=== PATIENT | male | born 1970 | race African-American/Black ===

== ENCOUNTER 2019-08-12 22:48 | Emergency (ER) | payer MEDICAID ==
[~2019-08-12] VITALS: Ht 175.3 cm; Wt 72.6 kg
--- NOTE | 2019-08-12 23:45 | NUR ---
Dr. Daley at bedside for MSE.
[2019-08-13] MEDS ORDERED: IBUPROFEN 600 MG TABLET PO ONE
[2019-08-13] MEDS ORDERED: IBUPROFEN 600 MG TABLET ONE (00:03)
[2019-08-13] MEDS ORDERED: TDAP DIPH,PERTUSS,TET VAC/PF 0.5 ML DISP.SYRIN IM ONE ×2 (00:03)
--- NOTE | 2019-08-13 00:32 | NUR ---
Patient discharged to home in stable conditon. Written and verbal after care instructions given. Patient verbalizes understanding of instructions. Pt ambulated out of ER with steady gait, no acute signs of distress, VSS, all belongings taken.
[2019-08-13 00:33] VITALS: BP 112/83
[2019-08-15] MEDS ORDERED: AMOX-427 PO (11:42)
[2019-08-15] MEDS ORDERED: DOXY100C2 PO (11:42)
== END 2019-08-13 00:33 | disposition home or self-care (01) ==
LOC: ER 22:48
DX: S41.152A Open bite of left upper arm, initial encounter (principal); F17.200 Nicotine dependence, unspecified, uncomplicated; W50.3XXA Accidental bite by another person, initial encounter; Y93.89 Activity, other specified; Y92.89 Other specified places as the place of occurrence of the external cause; Y99.8 Other external cause status
CPT/HCPCS: 90715; A4217; A4663

== ENCOUNTER 2019-08-13 02:40 | Inpatient (IN) | payer MEDICAID ==
[~2019-08-13] VITALS: Ht 175.3 cm; Wt 72.6 kg
--- NOTE | 2019-08-13 03:00 | NUR ---
Dr. Daley at bedside for MSE.
[2019-08-13] MEDS ORDERED: MORPHINE SULFATE 4 MG/1 ML DISP.SYRIN IV ONE ×2 (03:15→05:00)
[2019-08-13] MEDS ORDERED: MORPHINE SULFATE 4 MG/1 ML DISP.SYRIN ONE ×2 (03:15→04:25)
[2019-08-13 03:22] LABS: BASOPHILS % (AUTO) 0.2 % (0.0-2.0); EOSINOPHILS % (AUTO) 0.4 % (0.0-7.0); HEMATOCRIT 46.1 % (36.7-47.1); HEMOGLOBIN 15.4 g/dL (12.5-16.3); LYMPHOCYTES # (AUTO) 1.4 K/uL (20.0-40.0); MEAN CORPUSCULAR HEMOGLOBIN 30.8 uug (23.8-33.4); MEAN CORPUSCULAR HGB CONC 34 g/dL (32.5-36.3); MONOCYTES # (AUTO) 0.7 K/uL (2.0-10.0); NEUTROPHILS # (AUTO) 8.3 K/uL (1.8-8.9); NEUTROPHILS % (AUTO) 79.4 % (38.5-71.5); PLATELET COUNT (AUTO) 204 K/uL (152-348); RED BLOOD CELL COUNT(AUTO) 5.01 MIL/uL (4.06-5.63); WHITE BLOOD COUNT (AUTO) 10.5 K/uL (3.6-10.2)
[2019-08-13 03:40] LABS: BILIRUBIN,DIRECT 0.2 mg/dL (0.0-0.2); BILIRUBIN,TOTAL 0.9 mg/dL (0.2-1.0); CREATININE 1.2 mg/dL (0.6-1.3); POTASSIUM 3.7 mmol/L (3.5-5.1)
[2019-08-13] MEDS ORDERED: IOHEXOL 300MG/ML 100 ML INFUS..BTL ONE (03:52)
[2019-08-13] MEDS ORDERED: IV NORMAL SALINE 250 ML IV ONE (03:52)
[2019-08-13] MEDS ORDERED: SWABABLE VALVE TRANSFER SET EA MC ONE (03:52)
--- NOTE | 2019-08-13 03:55 | NUR ---
Pt out of ER for CT.
--- NOTE | 2019-08-13 04:23 | NUR ---
Pt back to ER from CT.
[2019-08-13] MEDS ORDERED: ONDANSETRON ODT 4 MG TAB.RAPDIS ONE (05:00)
[2019-08-13] MEDS ORDERED: ONDANSETRON ODT 4 MG TAB.RAPDIS SL ONE (05:00)
--- NOTE | 2019-08-13 05:04 | NUR ---
Kang Damico for Surgery Consult [phone]
--- NOTE | 2019-08-13 05:07 | NUR ---
Dr. Daley speaking with Dr. Rosas, ortho
[2019-08-13] MEDS ORDERED: PIPERACILLIN/TAZO 4.5 GM VIAL IV ONE (05:14)
[2019-08-13] MEDS ORDERED: VANCOMYCIN IV 1,500 MG in IV DEXTROSE 5% 250 ML IV ONE (05:15)
--- NOTE | 2019-08-13 05:25 | NUR ---
Sr. Daley on the phone with Dr. Rosas, ortho consult
[2019-08-13] MEDS ORDERED: VANCOMYCIN 1000 MG VIAL ONE ×2 (05:33→06:55)
[2019-08-13] MEDS ORDERED: VANCOMYCIN HCL 500 MG VIAL ONE (05:33)
[2019-08-13] MEDS ORDERED: IV NS 1000 ML 1,000 ML IV ONE (05:45)
--- NOTE | 2019-08-13 05:56 | NUR ---
Xray at bedside.
[2019-08-13] MEDS ORDERED: PIPERACILLIN SODIUM/TAZOBACTAM 4.5 G in IV DEXTROSE 5% 50 ML IV SCH (06:00)
--- NOTE | 2019-08-13 06:18 | NUR ---
Called [facility] to repage Camilo Sainz NP.
--- NOTE | 2019-08-13 06:23 | NUR ---
Paged Dr. Rosas for Ortho Consult [phone]. unable to leave . called [phone] for MD to . awaiting call back
--- NOTE | 2019-08-13 06:34 | NUR ---
Report given to Rozina GUTIÉRREZ OR.
--- NOTE | 2019-08-13 06:54 | NUR ---
Report given to Mathew clifton.
[2019-08-13] MEDS ORDERED: PROPOFOL 200 MG/20 ML BOTTLE IV ONE (07:00)
[2019-08-13] MEDS ORDERED: LIDOCAINE HCL-MPF 1% 5 ML VIAL IJ ONE (07:00)
[2019-08-13] MEDS ORDERED: ONDANSETRON 4 MG/2 ML VIAL IV ONE (07:00)
[2019-08-13] MEDS ORDERED: SEVOFLURANE 250 ML BOTTLE IH ONE (07:00)
[2019-08-13] MEDS ORDERED: METOCLOPRAMIDE HCL 10 MG/2 ML VIAL IV ONE (07:00)
--- NOTE | 2019-08-13 07:14 | NUR ---
Dr. Porras on panel call with Dr. Lopez.
[2019-08-13] MEDS ORDERED: POLYMYXIN B SULFATE 500,000 UNITS, BACITRACIN 50,000 UNITS, NORMAL SALINE 20 ML MC ONE ×3 (07:15)
[2019-08-13] MEDS ORDERED: FENTANYL CITRATE 250 MCG/5 ML AMPUL ONE (07:21)
[2019-08-13] MEDS ORDERED: MIDAZOLAM HCL 2 MG/2 ML VIAL ONE (07:21)
[2019-08-13] MEDS ORDERED: ROCURONIUM BROMIDE 50 MG/5 ML VIAL ONE (07:22)
--- NOTE | 2019-08-13 07:44 | NUR ---
PT WAS TRANSFERED TO SURGERY DEPARTMENT.
--- NOTE | 2019-08-13 09:54 | NUR ---
Received report from BROCK Thacker. Patient resting in bed. Reports mild pain, tolerable. Alert and oriented, no distress noted. On oxygen via NC 2L. Dressing in place right upper arm, sensation circulation and pulses intact. Swelling to upper arm. Will continue to monitor and assess.
[2019-08-13 10:00] VITALS: BP 105/58
[2019-08-13 10:15] VITALS: BP 104/61
[2019-08-13 10:45] VITALS: BP 99/60
[2019-08-13 11:15] VITALS: BP 91/56
[2019-08-13] MEDS ORDERED: MORPHINE SULFATE 4 MG/1 ML DISP.SYRIN IV PRN (11:45)
[2019-08-13] MEDS: IV D5W-0.45% NS +20 KCL 1,000 ML IV PRN (12:19)
[2019-08-13] MEDS: PIPERACILLIN/TAZOBACTAM/D5W 3.375 G in IV DEXTROSE 5% 50 ML IV SCH ×2 (13:14→21:02)
[2019-08-13] MEDS: HYDROCODONE/APAP 10-325 MG TABLET PO PRN ×2 (14:14→23:15)
[2019-08-13 16:00] VITALS: BP 85/44
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
--- NOTE | 2019-08-13 17:14 | NUR ---
Patient alert and oriented, ambulatory. Postop dressing in place right arm. Pain managed with PRN [place]. Zosyn antibiotic ordered. On IV fluids continuous, to HLIV if tolerating PO. On regular diet.
--- NOTE | 2019-08-13 17:43 | NUR ---
5:39pm: [employer] officers have not arrived at the hospital yet. SAMMI called [employer] dispatch back [phone] to check on an estimated time of arrival for the [employer] officers. SAMMI spoke with dispatcher #[id number], who stated that officers were held up by other incidents, but would be arriving to the hospital soon. SAMMI provided dispatcher with an additional contact number for the hospital, , asking dispatcher #[phone] to provide this contact number to the [employer] officers. Dispatcher #[id number] agreed. SAMMI informed BROCK Traore and BROCK Morales of above, and asked them to obtain the officers names, badge/serial numbers, and incident number from the officers.
--- NOTE | 2019-08-13 19:30 | NUR ---
RECEIVED PT AWAKE, ALERT AND ORIENTEDX4. PT SHOWS NO SIGNS OF ACUTE DISTRESS. SAFETY AND COMFORT PROVIDED. WILL CONTINUE TO MONITOR.
[2019-08-13 19:55] VITALS: BP 98/52
--- NOTE | 2019-08-13 21:20 | NUR ---
[employer] OFFICER NAME BYRON RICH OFFICER SERIAL # [id number] INCIDENT # [id number] INTYERVIEWED THE PT.
[2019-08-14] MEDS: IV D5W-0.45% NS +20 KCL 1,000 ML IV PRN ×2 (01:46→16:56)
[2019-08-14] MEDS: HYDROCODONE/APAP 10-325 MG TABLET PO PRN ×2 (03:31→12:39)
[2019-08-14 04:06] VITALS: BP 92/45
[2019-08-14] MEDS: PIPERACILLIN/TAZOBACTAM/D5W 3.375 G in IV DEXTROSE 5% 50 ML IV SCH ×3 (05:09→21:01)
--- NOTE | 2019-08-14 06:18 | NUR ---
PT SLEPT INTERMITTENTLY. PT IN NO ACUTE DISTRESS. IV INTACT. PRESCRIBED MEDICATION GIVEN AND PT TOLERATED IT WELL. PT GIVEN NORCO [id number] FOR 6/10 PAIN SCALE ON HIS RIGHT UPPER ARM. PT TOLERATED IT WELL. SAFETY AND COMFORT PROVIDED. WILL ENDORSE TO INCOMING NURSE FOR CONTINUITY OF CARE.
[2019-08-14] MEDS: NICOTINE 7 MG/24HR PATCH TD SCH (08:06)
--- NOTE | 2019-08-14 10:48 | NUR ---
SW was informed this morning by trimming caser Angelita and RN Haley that [facility] officer Gavi Busby, serial # [id number], from [facility] had come in last night to meet with the patient. Incident # [id number].
[2019-08-14 11:30] VITALS: BP 111/73
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
[2019-08-14 15:20] VITALS: BP 103/55
[2019-08-14] MEDS: VANCOMYCIN IV 1,000 MG in IV DEXTROSE 5% 250 ML IV SCH (16:08)
[2019-08-14] MEDS: BENZOCAINE/MENTH/CETYLPYRD LOZENGE MM PRN (20:10)
[2019-08-14 20:30] VITALS: BP 127/63
[2019-08-15] MEDS: VANCOMYCIN IV 1,000 MG in IV DEXTROSE 5% 250 ML IV SCH (04:50)
[2019-08-15 05:29] VITALS: BP 115/61
[2019-08-15] MEDS: PIPERACILLIN/TAZOBACTAM/D5W 3.375 G in IV DEXTROSE 5% 50 ML IV SCH (05:59)
[2019-08-15] MEDS: IV D5W-0.45% NS +20 KCL 1,000 ML IV PRN (06:05)
--- NOTE | 2019-08-15 06:35 | NUR ---
Patient slept well. No complaints of pain at this time. IV site on LFA intact and patent w/ IVF infusing. All needs attended. Will endorse accordingly
[2019-08-15 06:36] LABS: BASOPHILS % (AUTO) 0.3 % (0.0-2.0); EOSINOPHILS # (AUTO) 0.1 K/uL (0.0-0.7); EOSINOPHILS % (AUTO) 0.8 % (0.0-7.0); HEMATOCRIT 25.6 % (36.7-47.1); HEMOGLOBIN 8.7 g/dL (12.5-16.3); LYMPHOCYTES # (AUTO) 0.9 K/uL (20.0-40.0); LYMPHOCYTES % (AUTO) 12.7 % (20.5-51.5); MEAN CORPUSCULAR HEMOGLOBIN 31.2 uug (23.8-33.4); MEAN CORPUSCULAR HGB CONC 34 g/dL (32.5-36.3); MEAN CORPUSCULAR VOLUME 91.5 fL (73.0-96.2); MONOCYTES # (AUTO) 0.7 K/uL (2.0-10.0); MONOCYTES % (AUTO) 10.2 % (0.0-11.0); NEUTROPHILS # (AUTO) 5.4 K/uL (1.8-8.9); PLATELET COUNT (AUTO) 136 K/uL (152-348); WHITE BLOOD COUNT (AUTO) 7.1 K/uL (3.6-10.2)
[2019-08-15 07:04] LABS: MAGNESIUM 1.7 mg/dL (1.8-2.4); PHOSPHOROUS 2.4 mg/dL (2.5-4.9); POTASSIUM 3.6 mmol/L (3.5-5.1)
[2019-08-15] MEDS: NICOTINE 7 MG/24HR PATCH TD SCH (08:01)
[2019-08-15] MEDS: BENZOCAINE/MENTH/CETYLPYRD LOZENGE MM PRN (10:10)
[2019-08-15] MEDS ORDERED: ONDANSETRON 4 MG/2 ML VIAL IV PRN (10:15)
[2019-08-15 11:10] VITALS: BP 127/54
[2019-08-15] MEDS ORDERED: AMOX-427 PO (11:42)
[2019-08-15] MEDS ORDERED: DOXY100C2 PO (11:42)
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
--- NOTE | 2019-08-15 13:41 | NUR ---
dc orders received noted and carried out,dc instruction given to the pt .home health follow at home pt said he will follow up with his pcp ,pt left the facility via private car in stable condition
== END 2019-08-15 13:20 | disposition home health service (06) | DRG 793 ==
LOC: ER 02:43 → MEDSURG3 07:02
PROVIDERS: ADMIT Nurse Practitioner Acute Care; ATTEND Student in an Organized Health Care Education/Training Program
PROC: 0J9D0ZZ Drainage of Right Upper Arm Subcutaneous Tissue and Fascia, Open Approach (ICD-10-PCS; principal; 2019-08-13)
PROC: 0JCD0ZZ Extirpation of Matter from Right Upper Arm Subcutaneous Tissue and Fascia, Open Approach (ICD-10-PCS; principal; 2019-08-13)
DX: T79.8XXA Other early complications of trauma, initial encounter (principal); D62 Acute posthemorrhagic anemia; E83.39 Other disorders of phosphorus metabolism; E83.42 Hypomagnesemia; E83.51 Hypocalcemia; Q85.00 Neurofibromatosis, unspecified; F17.210 Nicotine dependence, cigarettes, uncomplicated; Z83.3 Family history of diabetes mellitus; S40.871A Other superficial bite of right upper arm, initial encounter; Y04.1XXA Assault by human bite, initial encounter; Y92.89 Other specified places as the place of occurrence of the external cause
CPT/HCPCS: 36415; 73020; 73060; 83605; 83735; 84100; 85025; 85730; 86850; 86900; 86901; A4649; A4663; A9150; G0378; J2250; J2270; J2405; J2543; J2765; J3010; J3370; J3490; J7030; J7050; J7060; Q0162; Q9967

== ENCOUNTER 2019-08-18 14:49 | Inpatient (IN) | payer MEDICAID ==
[~2019-08-18] VITALS: Ht 175.3 cm; Wt 76.2 kg
[~2019-08-18 14:49] MED LIST: AMOX-427 PO; DOXY100C2 PO
[2019-08-18 15:55] LABS: BASOPHILS % (AUTO) 0.5 % (0.0-2.0); EOSINOPHILS % (AUTO) 0.1 % (0.0-7.0); HEMATOCRIT 32.5 % (36.7-47.1); HEMOGLOBIN 10.9 g/dL (12.5-16.3); LYMPHOCYTES # (AUTO) 0.8 K/uL (20.0-40.0); LYMPHOCYTES % (AUTO) 16.5 % (20.5-51.5); MEAN CORPUSCULAR HEMOGLOBIN 30.6 uug (23.8-33.4); MEAN CORPUSCULAR HGB CONC 33 g/dL (32.5-36.3); MEAN CORPUSCULAR VOLUME 91.6 fL (73.0-96.2); MONOCYTES # (AUTO) 0.8 K/uL (2.0-10.0); MONOCYTES % (AUTO) 18.1 % (0.0-11.0); NEUTROPHILS % (AUTO) 64.8 % (38.5-71.5); PLATELET COUNT (AUTO) 264 K/uL (152-348); RED BLOOD CELL COUNT(AUTO) 3.55 MIL/uL (4.06-5.63); WHITE BLOOD COUNT (AUTO) 4.6 K/uL (3.6-10.2)
[2019-08-18] MEDS ORDERED: SWABABLE VALVE TRANSFER SET EA MC ONE (15:58)
[2019-08-18] MEDS ORDERED: IV NORMAL SALINE 250 ML IV ONE (15:58)
[2019-08-18] MEDS ORDERED: IOHEXOL 300MG/ML 100 ML INFUS..BTL ONE (15:58)
[2019-08-18 16:09] LABS: CREATININE 1.3 mg/dL (0.6-1.3); POTASSIUM 4.1 mmol/L (3.5-5.1)
[2019-08-18 16:13] LABS: BILIRUBIN,DIRECT 0.2 mg/dL (0.0-0.2); BILIRUBIN,TOTAL 0.9 mg/dL (0.2-1.0); TOTAL PROTEIN, SERUM 7.6 g/dL (6.4-8.2)
[2019-08-18 16:45] LABS: BAND % (MANUAL) 5 % (0-10); LYMPHOCYTES % (MANUAL) 15 % (20-40); MONOCYTES % (MANUAL) 18 % (2-10); NEUTROPHILS % (MANUAL) 62 % (42-75)
--- NOTE | 2019-08-18 17:40 | NUR ---
Pt states he has to leave to go to work, notified and he spoke with pt.
[2019-08-18] MEDS ORDERED: PIPERACILLIN SODIUM/TAZOBACTAM 3.375 G in IV DEXTROSE 5% 50 ML IV ONE (18:00)
[2019-08-18] MEDS ORDERED: VANCOMYCIN IV 1,500 MG in IV DEXTROSE 5% 500 ML IV SCH (18:00)
[2019-08-18] MEDS ORDERED: IV NORMAL SALINE 1000 ML BAG IV ONE (18:00)
--- NOTE | 2019-08-18 18:00 | NUR ---
Per pt to be admitted, spoke with pt about plan of care.
[2019-08-18] MEDS ORDERED: PIPERACILLIN/TAZOBACTAM/D5W 50 ML IV ONE (18:07)
--- NOTE | 2019-08-18 18:30 | NUR ---
[facility] was contacted by ER admitting for auth for admission.
--- NOTE | 2019-08-18 19:10 | NUR ---
RECEIVED HAND OFF AND SBAR FR DAY SHIFT RN PT IS AOX3, RA W/G20 AC L INFUSING ABX AND NSS INFUSING WELL PENDING CALL BACK FR DR. BURTON (ORTHO)
--- NOTE | 2019-08-18 19:40 | NUR ---
DR BURTON PAGED AGAIN
--- NOTE | 2019-08-18 21:02 | NUR ---
AFTER MULTIPLE ATTEMPTS TO PAGE DR. BURTON, TEOD PROMPTED TO ADMIT TO FACILITY PAGED FIDEL(JOHANN)
--- NOTE | 2019-08-18 21:02 | NUR ---
Called [facility] for panel placement
[2019-08-18] MEDS ORDERED: ONDANSETRON 4 MG/2 ML VIAL IV PRN (21:45)
[2019-08-18] MEDS ORDERED: Z GUARD REMEDY PASTE 57 GM TUBE TOP PRN (21:45)
[2019-08-18] MEDS ORDERED: HYDROCODONE/APAP 5-325MG TABLET PO PRN (21:45)
[2019-08-18] MEDS ORDERED: ACETAMINOPHEN 325 MG TABLET PO PRN (21:45)
[2019-08-18] MEDS ORDERED: MAGNESIUM HYDROXIDE 30 ML LIQUID UDC PO PRN (21:45)
--- NOTE | 2019-08-18 22:19 | NUR ---
[facility]
[2019-08-18 22:20] VITALS: BP 113/62
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
[2019-08-18] MEDS ORDERED: PIPERACILLIN/TAZOBACTAM/D5W 100 ML IV ONE (23:06)
[2019-08-19] MEDS: PIPERACILLIN/TAZOBACTAM/D5W 50 ML IV SCH ×2 (00:16→05:21)
--- NOTE | 2019-08-19 05:50 | NUR ---
PATIENT SLEPT WELL THROUGHOUT THE NIGHT. TOLERATED IV ANTIBIOTICS WITH NO COMPLICATIONS. NO COMPLAINTS OF PAIN. RIGHT ARM HAS SLIGHT INCREASED SWELLING. WILL ENDORSE TO ONCOMING SHIFT.
[2019-08-19 05:52] VITALS: BP 120/72
[2019-08-19 07:40] LABS: BASOPHILS % (AUTO) 0.5 % (0.0-2.0); EOSINOPHILS % (AUTO) 0.4 % (0.0-7.0); HEMATOCRIT 26.8 % (36.7-47.1); HEMOGLOBIN 9.2 g/dL (12.5-16.3); LYMPHOCYTES # (AUTO) 0.8 K/uL (20.0-40.0); LYMPHOCYTES % (AUTO) 19.1 % (20.5-51.5); MEAN CORPUSCULAR HEMOGLOBIN 31.2 uug (23.8-33.4); MEAN CORPUSCULAR HGB CONC 35 g/dL (32.5-36.3); MEAN CORPUSCULAR VOLUME 90.6 fL (73.0-96.2); MONOCYTES # (AUTO) 0.7 K/uL (2.0-10.0); MONOCYTES % (AUTO) 16.9 % (0.0-11.0); NEUTROPHILS # (AUTO) 2.5 K/uL (1.8-8.9); NEUTROPHILS % (AUTO) 63.1 % (38.5-71.5); PLATELET COUNT (AUTO) 237 K/uL (152-348); RED BLOOD CELL COUNT(AUTO) 2.95 MIL/uL (4.06-5.63)
[2019-08-19 08:02] LABS: CREATININE 1.1 mg/dL (0.6-1.3); PHOSPHOROUS 3.8 mg/dL (2.5-4.9); POTASSIUM 3.9 mmol/L (3.5-5.1)
--- NOTE | 2019-08-19 08:07 | NUR ---
RECEIVED PT RESTING IN BED. NO ACUTE DISTRESS OR SOB NOTED. PT DENIES PAIN AT THIS TIME. BED LOCKED AND IN LOW POSITION. PT ALERT AND ORIENTED X4. PLEASANT AND COOPERATIVE. WILL CONTINUE TO MONITOR FOR SAFETY AND COMFORT.
[2019-08-19 09:25] LABS: BAND % (MANUAL) 2 % (0-10); MONOCYTES % (MANUAL) 16 % (2-10); NEUTROPHILS % (MANUAL) 66 % (42-75)
[2019-08-19 09:26] LABS: LYMPHOCYTES % (MANUAL) 16 % (20-40)
--- NOTE | 2019-08-19 09:34 | NUR ---
Clinical pharmacy note:Vancomycin per pharmacy Subjective: To strat Vancomycin dosing on this 49 yo male patient for empiric tx (waiting for MD note) Objective: BUN 12 Scr 1.1 (decreasing) WBC 4.0 Temp 98.6 ht 175 mc wt 76 kg Assessment/Plan: Patient received vanco 1500 mg IVPB x1 on 08/18 at 1830. Will start vanoc 1250 mg IVPB q13h for expected vanco trough level of 17 mcg/ml at stead state. 1st dose today at 0900. Plan to order vanco trough level before 4th dose (not yet ordered). Will monitor renal function & adjust the dose if needed. Will follow.
[2019-08-19] MEDS: VANCOMYCIN IV 1,250 MG in IV DEXTROSE 5% 250 ML IV SCH ×2 (09:39→21:20)
[2019-08-19 11:47] VITALS: BP 102/55
[2019-08-19] MEDS: PIPERACILLIN SODIUM/TAZOBACTAM 3.375 G in IV DEXTROSE 5% 50 ML IV SCH ×3 (11:58→23:45)
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
--- NOTE | 2019-08-19 14:45 | NUR ---
PT HAS $203 DOLLARS IN SAFE. JOSE MIGUEL CONTACTED ADMITTING IN ORDER TO PUT MONEY IN SAFE.
--- NOTE | 2019-08-19 15:32 | NUR ---
TRINA WRAP PLACED ON COREY ORDERED BY . FOLLOWED BY K-PAD. K-PAD NOT FUNCTIONING CORRECTLY. CHARGE NURSE MITZI CONTACTED [employer] IN ORDER TO OBTAIN ANOTHER MACHINE.
[2019-08-19 16:25] VITALS: BP 156/78
[2019-08-19 16:30] VITALS: BP 97/58
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
[2019-08-19 20:27] VITALS: BP 96/56
[2019-08-20] MEDS: PIPERACILLIN SODIUM/TAZOBACTAM 3.375 G in IV DEXTROSE 5% 50 ML IV SCH ×2 (05:09→12:01)
[2019-08-20 06:00] VITALS: BP 105/58
--- NOTE | 2019-08-20 06:17 | NUR ---
Patient slept well. No SOB noted, not in distress. No complaints of pain at this time. IV site changed to L hand 22g, intact and patent with saline flush. IV ATBs tolerated well. R arm covered w/ TRINA bandage, K pad in place. All needs attended. Will endorse accordingly
--- NOTE | 2019-08-20 07:30 | NUR ---
RECEIVED PATIENT IN BED ASLEEP , NO S/S OF ACUTE DISTRESS NOTED, NO C/O PAIN AT THIS TIME, IV INTACT AND PATENT , SAFETY AND COMFORT PROVIDED AT ALL TIMES. CALL LIGHT WITHIN REACH. WILL CONTINUE TO MONITOR.
[2019-08-20] MEDS: VANCOMYCIN IV 1,250 MG in IV DEXTROSE 5% 250 ML IV SCH (10:01)
[2019-08-20 11:16] VITALS: BP 91/52
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
[2019-08-20 15:26] VITALS: BP 99/55
--- NOTE | 2019-08-20 17:40 | NUR ---
RECEIVED DISCHARGE ORDER FOR PATIENT TO TRANSFER TO [facility] VIA AMBULANCE WITH 2 EMT, DISCHARGE INSTRUCTION GIVEN AND VERBALIZED UNDERSTANDING, BELONGINGS ACCOUNTED FOR AND SIGNED, IV KEPT FOR CONTINUATION OF USE AT THE FACILITY. QUESTIONS AND CONCERNS ADDRESSED. PATIENT REMOVED TRINA BANDAGE STATES HE DOESN'T NEED IT ANYMORE.
== END 2019-08-20 17:30 | disposition short-term general hospital (02) | DRG 344 ==
LOC: ER 14:49 → MEDSURG3 21:53
PROVIDERS: ADMIT Family Medicine; ATTEND Family Medicine
DX: M60.000 Infective myositis, unspecified right arm (principal); D62 Acute posthemorrhagic anemia; Q85.00 Neurofibromatosis, unspecified; S41.15 Open bite of upper arm; R79.89 Other specified abnormal findings of blood chemistry; W50 Accidental hit, strike, kick, twist, bite or scratch by another person
CPT/HCPCS: 36415; 70030-TC; 71046; 76881; 83605; 83735; 84100; 85025; 87040; 87400; 93005; A4217; A4663; G0378; J2543; J3370; J7030; J7040; J7050; J7060; Q9967

== ENCOUNTER 2019-08-23 00:21 | Emergency (ER) | payer MEDICAID ==
[~2019-08-23] VITALS: Ht 172.7 cm; Wt 72.6 kg
[2019-08-23] MEDS ORDERED: AMOX500T2 PO (00:49)
[2019-08-23] MEDS ORDERED: IBUP-1955 PO (00:49)
--- NOTE | 2019-08-23 00:56 | NUR ---
JAMEEL AT BEDSIDE FOR MSE.
[2019-08-23] MEDS ORDERED: VANCOMYCIN IV 1,000 MG in IV DEXTROSE 5% 250 ML IV ONE (01:15)
[2019-08-23] MEDS ORDERED: VANCOMYCIN IV 200 ML ONE (01:24)
--- NOTE | 2019-08-23 01:32 | NUR ---
started heplock placed no 20 H/L to the right hand .
--- NOTE | 2019-08-23 01:52 | NUR ---
asked for food given dinner tray .patient able to feed self.
--- NOTE | 2019-08-23 02:18 | NUR ---
Received call from [facility], states no available beds in [facility], and pt is capitated to [facility], if patient refuses to go to [facility], patient may or may not be responsible for the medical bill. .
--- NOTE | 2019-08-23 02:27 | NUR ---
[facility] [employer] called and spoked with Babak .as per insurance patient signed AMA from [facility] .
--- NOTE | 2019-08-23 02:45 | NUR ---
DR:LIYAH spoked to patient ,patient refused to go to [facility] .PATIENT REFUSED TO SIGNED AMA FORM AND ELOPE WITH IV HEPLOCK ON .ATTEMPTED TO REMOVED PATIENT LEFT .
--- NOTE | 2019-08-23 03:24 | NUR ---
Patient eloped from facility. ER physician notified.REFUSED TO SIGN REJECTION OF MEDICAL TREATMENT ,AGAINST MEDICAL ADVICE,AMA FORM .
== END 2019-08-23 03:15 | disposition left against medical advice (07) ==
LOC: ER 00:23
DX: Z48.02 Encounter for removal of sutures (principal); R60.9 Edema, unspecified; F17.200 Nicotine dependence, unspecified, uncomplicated; F10.10 Alcohol abuse, uncomplicated; Z79.899 Other long term (current) drug therapy
CPT/HCPCS: 96374; 99283; J3370; A4663

== ENCOUNTER 2019-09-12 00:36 | Emergency (ER) | payer MEDICAID ==
[~2019-09-12] VITALS: Ht 175.3 cm; Wt 72.6 kg
--- NOTE | 2019-09-12 01:00 | NUR ---
Dr. Proctor at bedside for MSE.
[2019-09-12 01:40] VITALS: BP 115/71
== END 2019-09-12 01:40 | disposition home or self-care (01) ==
LOC: ER 00:39
DX: S41.111D Laceration without foreign body of right upper arm, subsequent encounter (principal); F17.219 Nicotine dependence, cigarettes, with unspecified nicotine-induced disorders; F10.10 Alcohol abuse, uncomplicated; Z79.899 Other long term (current) drug therapy; Z71.6 Tobacco abuse counseling
CPT/HCPCS: A4217; A4663

== ENCOUNTER 2019-11-15 03:01 | Emergency (ER) | payer MEDICAID ==
[~2019-11-15] VITALS: Ht 175.3 cm; Wt 72.6 kg
--- NOTE | 2019-11-15 03:21 | NUR ---
Dr. Vega at bedside for MSE.
[2019-11-15] MEDS ORDERED: BACITRACIN ZINC OINT 15 GM TUBE TOP STA (03:29)
[2019-11-15] MEDS ORDERED: SULFAMETH/TRIMETH 800/160 MG TABLET PO ONE (03:30)
[2019-11-15] MEDS ORDERED: CEphaleXIN 500 MG CAPSULE PO ONE (03:30)
[2019-11-15] MEDS ORDERED: NEOMY/BACITRA/POLYMYXIN B OINT UD PACKET TP ONE (03:32)
[2019-11-15] MEDS ORDERED: SULFAMETH/TRIMETH 800/160 MG TABLET ONE (03:37)
[2019-11-15] MEDS ORDERED: CEphaleXIN 500 MG CAPSULE ONE (03:38)
[2019-11-15] MEDS ORDERED: SILVER SULFADIAZINE 1% CREAM 25 GM TUBE TP ONE (03:41)
[2019-11-15] MEDS ORDERED: SILVER SULFADIAZINE 1% CREAM 50 GM TP ONE (03:45)
--- NOTE | 2019-11-15 03:47 | NUR ---
Patient discharged to home in stable condition. Written and verbal after care instructions given. Patient verbalizes understanding of instructions. Stressed follow up or return to ER for worsening s/s. Pt ambulated out of ER with steady gait, no acute signs of distress, VSS, all belongings taken.
[2019-11-15 03:48] VITALS: BP 120/90
== END 2019-11-15 03:48 | disposition home or self-care (01) ==
LOC: ER 03:06
PROC: 2W2FX4Z Dressing of Left Hand using Bandage (ICD-10-PCS; principal; 2019-11-15)
DX: T23.362A Burn of third degree of back of left hand, initial encounter (principal); X19.XXXA Contact with other heat and hot substances, initial encounter; Y08.89XA Assault by other specified means, initial encounter; Y93.89 Activity, other specified; Y92.89 Other specified places as the place of occurrence of the external cause; Y99.8 Other external cause status; L03.114 Cellulitis of left upper limb
CPT/HCPCS: 16020; A4217

== ENCOUNTER 2022-03-21 02:53 | Emergency (ER) | payer MEDICAID ==
[~2022-03-21] VITALS: Ht 177.8 cm; Wt 78.5 kg
--- NOTE | 2022-03-21 04:11 | NUR ---
Dr. Foster at bedside for MSE.
[2022-03-21] MEDS ORDERED: OXYC-128 PO (04:25)
--- NOTE | 2022-03-21 04:30 | NUR ---
Patient discharged to home in stable condition. Written and verbal after care instructions given. Patient verbalizes understanding of instructions. Stressed follow up or return to ER for worsening s/s.
[2022-03-21 04:31] VITALS: BP 135/82
== END 2022-03-21 04:31 | disposition home or self-care (01) ==
LOC: ER 02:56
DX: S46.912A Strain of unspecified muscle, fascia and tendon at shoulder and upper arm level, left arm, initial encounter (principal); X50.3XXA Overexertion from repetitive movements, initial encounter; Y92.89 Other specified places as the place of occurrence of the external cause; Y99.0 Civilian activity done for income or pay; Q85.00 Neurofibromatosis, unspecified
CPT/HCPCS: A4663

== ENCOUNTER 2022-10-07 01:37 | Emergency (ER) | payer MEDICAID ==
[~2022-10-07] VITALS: Ht 177.8 cm; Wt 74.8 kg
[~2022-10-07 01:37] MED LIST changes: -AMOX-427 PO; -DOXY100C2 PO; +OXYC-128 PO
--- NOTE | 2022-10-07 01:50 | NUR ---
Dr. Foster at bedside. MSE in progress.
[2022-10-07] MEDS ORDERED: CEphaleXIN 500 MG CAPSULE PO ONE (02:00)
[2022-10-07] MEDS ORDERED: SULFAMETH/TRIMETH 800/160 MG TABLET PO ONE (02:00)
[2022-10-07] MEDS ORDERED: SULF1TAB48 PO (02:05)
[2022-10-07] MEDS ORDERED: HYDR-3972 PO (02:05)
[2022-10-07] MEDS ORDERED: CEPH500C2 PO (02:05)
[2022-10-07] MEDS ORDERED: SULFAMETH/TRIMETH 800/160 MG TABLET ONE (02:06)
[2022-10-07] MEDS ORDERED: CEphaleXIN 500 MG CAPSULE ONE (02:06)
--- NOTE | 2022-10-07 02:10 | NUR ---
Patient discharged to home in stable condition. A/O x 4. NAD noted. Ambulatory with a steady gait. All belongings with patient. Written and verbal after care instructions given. Patient verbalizes understanding of instructions. Stressed follow up or return to ER for worsening s/s.
== END 2022-10-07 02:11 | disposition home or self-care (01) ==
LOC: ER 01:37
DX: J34.0 Abscess, furuncle and carbuncle of nose (principal)
CPT/HCPCS: A4663

== ENCOUNTER 2024-05-12 22:43 | Emergency (ER) | payer SELFPAY ==
[~2024-05-12] VITALS: Ht 175.3 cm; Wt 77.1 kg
[~2024-05-12 22:43] MED LIST changes: +CEPH500C2 PO; +CEPH500T PO; +HYDR-3972 PO; +HYDR-3980 PO; +NITR-84 PO; +ONDA4TAB5 PO; +SULF1TAB48 PO
[2024-05-13 01:20] LABS: BASOPHILS # (AUTO) 0.2 K/UL (0.0-0.2); BASOPHILS % (AUTO) 2.3 % (0.0-2.0); EOSINOPHILS % (AUTO) 0.3 % (0.0-7.0); HEMATOCRIT 44.4 % (36.7-47.1); HEMOGLOBIN 14.9 g/dL (12.5-16.3); LYMPHOCYTES # (AUTO) 0.9 K/uL (0.8-4.8); LYMPHOCYTES % (AUTO) 10.2 % (20.5-51.5); MEAN CORPUSCULAR HEMOGLOBIN 30.4 uug (23.8-33.4); MEAN CORPUSCULAR HGB CONC 34 g/dL (32.5-36.3); MEAN CORPUSCULAR VOLUME 90.4 fL (73.0-96.2); MONOCYTES # (AUTO) 0.7 K/uL (0.1-1.30); MONOCYTES % (AUTO) 7.7 % (0.0-11.0); NEUTROPHILS # (AUTO) 7.2 K/uL (1.8-8.9); NEUTROPHILS % (AUTO) 79.5 % (38.5-71.5); PLATELET COUNT (AUTO) 175 K/uL (152-348); RED CELL DISTRIBUTION WIDTH 13.4 % (12.1-16.2)
[2024-05-13] MEDS ORDERED: SULFAMETH/TRIMETH 800/160 MG TABLET ONE (01:27)
[2024-05-13] MEDS: SULFAMETH/TRIMETH 800/160 MG TABLET PO ONE (01:28)
[2024-05-13 02:29] LABS: ALANINE AMINOTRANSFERASE 19 U/L (16-63); ALBUMIN 3.8 g/dL (3.4-5.0); ALKALINE PHOSPHATASE 54 U/L (50-136); ASPARTATE AMINOTRANSFERASE 8 U/L (15-37); BILIRUBIN,DIRECT < 0.1 mg/dL (0.0-0.2); BILIRUBIN,TOTAL 0.3 mg/dL (0.2-1.0); CALCIUM 9.1 mg/dL (8.5-10.1); CARBON DIOXIDE 27 mmol/L (21-32); CHLORIDE 106 mmol/L (98-107); CREATININE 1.2 mg/dL (0.6-1.3); GLUCOSE 97 mg/dL (74-106); POTASSIUM 4.2 mmol/L (3.5-5.1); SODIUM SERUM 144 mmol/L (136-145); TOTAL PROTEIN, SERUM 7.5 g/dL (6.4-8.2); UREA NITROGEN, BLOOD 15 mg/dL (7-18)
[2024-05-13] MEDS ORDERED: SWABABLE VALVE TRANSFER SET EA MC ONE (02:42)
[2024-05-13] MEDS ORDERED: IOHEXOL 300MG/ML 100 ML INFUS..BTL ONE (02:42)
[2024-05-13] MEDS ORDERED: IV NORMAL SALINE 250 ML IV ONE (02:44)
[2024-05-13 03:14] LABS: *BILIRUBIN,URIN NEGATIVE (NEGATIVE); *BLOOD, URINE NEGATIVE (NEGATIVE); *CLARITY,URINE CLEAR (CLEAR); *COLOR,URINE YELLOW (YELLOW); *KETONES,URINE NEGATIVE (NEGATIVE); *PROTEIN,URINE NEGATIVE (NEGATIVE); *UROBILINOGEN,URINE 0.2 E.U./dl (NORMAL); LEUKOCYTE ESTERASE ,URINE NEGATIVE (NEGATIVE); NITRITE, URINE NEGATIVE (NEGATIVE); PH,URINE 6.5 (5.0-8.0); UGLUCOSE NEGATIVE (NEGATIVE)
[2024-05-13 04:19] LABS: LIPASE 20 U/L (16-77)
[2024-05-13] MEDS: HYDROMORPHONE 1 MG/1 ML DISP.SYRIN IV ONE (04:30)
[2024-05-13] MEDS ORDERED: HYDROMORPHONE 1 MG/1 ML DISP.SYRIN ONE (04:54)
[2024-05-13 05:10] VITALS: O2SAT 96
[2024-05-13] MEDS ORDERED: SULF1TAB48 PO (06:09)
== END 2024-05-13 07:39 | disposition home or self-care (01) ==
LOC: ER 22:44
DX: K40.30 Unilateral inguinal hernia, with obstruction, without gangrene, not specified as recurrent (principal); L03.116 Cellulitis of left lower limb; F17.210 Nicotine dependence, cigarettes, uncomplicated; Z79.899 Other long term (current) drug therapy; Z88.7 Allergy status to serum and vaccine
CPT/HCPCS: 36415; 83690; 85025; 85730; A4606; A4663; J1171; Q9967

== ENCOUNTER 2024-05-24 01:10 | Emergency (ER) | payer SELFPAY ==
[~2024-05-24] VITALS: Ht 175.3 cm; Wt 79.4 kg
[2024-05-24] MEDS ORDERED: FURO-152 PO (01:25)
[2024-05-24] MEDS ORDERED: FUROSEMIDE 20 MG TABLET ONE (01:27)
[2024-05-24] MEDS: FUROSEMIDE 20 MG TABLET PO ONE (01:29)
[2024-05-24] MEDS ORDERED: TDAP DIPH,PERTUSS,TET VAC/PF 0.5 ML DISP.SYRIN IM ONE (01:32)
[2024-05-24] MEDS ORDERED: AMOXICILLIN-CLAVUL 875-125MG TABLET ONE (01:32)
[2024-05-24] MEDS: AMOXICILLIN-CLAVUL 875-125MG TABLET PO ONE (01:37)
[2024-05-24] MEDS: TDAP DIPH,PERTUSS,TET VAC/PF 0.5 ML DISP.SYRIN IM ONE (01:38)
[2024-05-24 01:44] LABS: BASOPHILS % (AUTO) 0.5 % (0.0-2.0); EOSINOPHILS # (AUTO) 0.1 K/uL (0.0-0.7); EOSINOPHILS % (AUTO) 0.8 % (0.0-7.0); HEMATOCRIT 47.6 % (36.7-47.1); HEMOGLOBIN 15.7 g/dL (12.5-16.3); LYMPHOCYTES # (AUTO) 1.5 K/uL (0.8-4.8); LYMPHOCYTES % (AUTO) 20.6 % (20.5-51.5); MEAN CORPUSCULAR HEMOGLOBIN 30.2 uug (23.8-33.4); MEAN CORPUSCULAR HGB CONC 33 g/dL (32.5-36.3); MEAN CORPUSCULAR VOLUME 91.2 fL (73.0-96.2); MONOCYTES # (AUTO) 0.7 K/uL (0.1-1.30); MONOCYTES % (AUTO) 9.6 % (0.0-11.0); NEUTROPHILS % (AUTO) 68.5 % (38.5-71.5); PLATELET COUNT (AUTO) 203 K/uL (152-348); RED BLOOD CELL COUNT(AUTO) 5.22 MIL/uL (4.06-5.63); RED CELL DISTRIBUTION WIDTH 13.7 % (12.1-16.2); WHITE BLOOD COUNT (AUTO) 7.3 K/uL (3.6-10.2)
[2024-05-24 01:49] LABS: DIFFERENTIAL COMMENT 1
[2024-05-24 01:51] LABS: CALCIUM 9.6 mg/dL (8.5-10.1); CARBON DIOXIDE 28 mmol/L (21-32); CHLORIDE 107 mmol/L (98-107); CREATININE 1.1 mg/dL (0.6-1.3); GLUCOSE 99 mg/dL (74-106); POTASSIUM 4.6 mmol/L (3.5-5.1); SODIUM SERUM 142 mmol/L (136-145); UREA NITROGEN, BLOOD 18 mg/dL (7-18)
[2024-05-24 02:37] LABS: MAGNESIUM 2.2 mg/dL (1.8-2.4)
[2024-05-24 03:10] VITALS: BP 122/89; TEMP 98.6; O2SAT 99
== END 2024-05-24 03:10 | disposition home or self-care (01) ==
LOC: ER 01:11
DX: R60.0 Localized edema (principal); F17.200 Nicotine dependence, unspecified, uncomplicated; Z79.899 Other long term (current) drug therapy; Z60.2 Problems related to living alone; Z88.7 Allergy status to serum and vaccine; W45.0XXA Nail entering through skin, initial encounter
CPT/HCPCS: 36415; 71045; 83735; 84484; 85025; 90715; A4606; A4663

== ENCOUNTER 2024-08-31 20:46 | Inpatient (IN) | payer SELFPAY ==
[~2024-08-31] VITALS: Ht 175.3 cm; Wt 77.1 kg
[~2024-08-31 20:46] MED LIST changes: +FURO-152 PO
[2024-08-31 21:26] LABS: BASOPHILS % (AUTO) 0.3 % (0.0-2.0); EOSINOPHILS % (AUTO) 0.4 % (0.0-7.0); HEMATOCRIT 44.9 % (36.7-47.1); HEMOGLOBIN 15.2 g/dL (12.5-16.3); LYMPHOCYTES # (AUTO) 1.2 K/uL (0.8-4.8); LYMPHOCYTES % (AUTO) 11.1 % (20.5-51.5); MEAN CORPUSCULAR HEMOGLOBIN 30.1 uug (23.8-33.4); MEAN CORPUSCULAR HGB CONC 34 g/dL (32.5-36.3); MEAN CORPUSCULAR VOLUME 88.7 fL (73.0-96.2); MONOCYTES % (AUTO) 9.1 % (0.0-11.0); NEUTROPHILS # (AUTO) 8.4 K/uL (1.8-8.9); NEUTROPHILS % (AUTO) 79.1 % (38.5-71.5); PLATELET COUNT (AUTO) 185 K/uL (152-348); RED BLOOD CELL COUNT(AUTO) 5.06 MIL/uL (4.06-5.63); RED CELL DISTRIBUTION WIDTH 13.8 % (12.1-16.2); WHITE BLOOD COUNT (AUTO) 10.6 K/uL (3.6-10.2)
[2024-08-31 21:29] LABS: DIFFERENTIAL COMMENT 1
[2024-08-31 21:35] LABS: CALCIUM 9.4 mg/dL (8.5-10.1); CREATININE 1.2 mg/dL (0.6-1.3)
[2024-08-31 21:46] LABS: ALBUMIN 3.8 g/dL (3.4-5.0); BILIRUBIN,DIRECT 0.1 mg/dL (0.0-0.2); BILIRUBIN,TOTAL 0.4 mg/dL (0.2-1.0); TOTAL PROTEIN, SERUM 7.5 g/dL (6.4-8.2)
[2024-09-01] MEDS ORDERED: ACETAMINOPHEN 650 MG SUPP.RECT RC PRN
[2024-09-01] MEDS ORDERED: HYDROMORPHONE 1 MG/1 ML DISP.SYRIN ONE (00:16)
[2024-09-01] MEDS: HYDROMORPHONE 1 MG/1 ML DISP.SYRIN IV PRN (00:18)
[2024-09-01] MEDS: IV D5 1/2 NS 1000 ML 1,000 ML IV PRN (04:13)
[2024-09-01 04:27] VITALS: BP 136/86; TEMP 97.8; O2SAT 96
[2024-09-01 07:41] LABS: BASOPHILS % (AUTO) 0.3 % (0.0-2.0); EOSINOPHILS % (AUTO) 0.6 % (0.0-7.0); HEMATOCRIT 41.5 % (36.7-47.1); HEMOGLOBIN 14.2 g/dL (12.5-16.3); LYMPHOCYTES # (AUTO) 1.3 K/uL (0.8-4.8); LYMPHOCYTES % (AUTO) 17.3 % (20.5-51.5); MEAN CORPUSCULAR HEMOGLOBIN 30.3 uug (23.8-33.4); MEAN CORPUSCULAR HGB CONC 34 g/dL (32.5-36.3); MEAN CORPUSCULAR VOLUME 88.6 fL (73.0-96.2); MONOCYTES # (AUTO) 0.9 K/uL (0.1-1.30); MONOCYTES % (AUTO) 11.1 % (0.0-11.0); NEUTROPHILS # (AUTO) 5.4 K/uL (1.8-8.9); NEUTROPHILS % (AUTO) 70.7 % (38.5-71.5); PLATELET COUNT (AUTO) 160 K/uL (152-348); RED BLOOD CELL COUNT(AUTO) 4.69 MIL/uL (4.06-5.63); RED CELL DISTRIBUTION WIDTH 13.6 % (12.1-16.2); WHITE BLOOD COUNT (AUTO) 7.7 K/uL (3.6-10.2)
[2024-09-01 07:43] LABS: DIFFERENTIAL COMMENT 1
[2024-09-01 07:59] LABS: CALCIUM 8.7 mg/dL (8.5-10.1); CREATININE 1.1 mg/dL (0.6-1.3); MAGNESIUM 1.8 mg/dL (1.8-2.4); PHOSPHOROUS 3.7 mg/dL (2.5-4.9); POTASSIUM 3.7 mmol/L (3.5-5.1)
[2024-09-01] MEDS: PANTOPRAZOLE SODIUM 40 MG VIAL IV SCH (09:33)
[2024-09-01 11:33] VITALS: BP 121/78; TEMP 98; O2SAT 97
[2024-09-01 16:00] VITALS: BP 129/87; TEMP 97.9; O2SAT 97
[2024-09-01] MEDS: ONDANSETRON 4 MG/2 ML VIAL IV PRN (17:01)
[2024-09-01 19:51] VITALS: BP 144/88; TEMP 97.5; O2SAT 96
[2024-09-02 04:53] VITALS: BP 121/76; TEMP 97.4; O2SAT 96
== END 2024-09-02 09:30 | disposition left against medical advice (07) | DRG 395 ==
LOC: ER 20:46 → MEDSURG3 23:05
PROVIDERS: ADMIT Internal Medicine; ATTEND Student in an Organized Health Care Education/Training Program
DX: K40.20 Bilateral inguinal hernia, without obstruction or gangrene, not specified as recurrent (principal); Q85.01 Neurofibromatosis, type 1; N32.3 Diverticulum of bladder; F17.210 Nicotine dependence, cigarettes, uncomplicated; Z86.018 Personal history of other benign neoplasm; R11.10 Vomiting, unspecified; Z79.899 Other long term (current) drug therapy
CPT/HCPCS: 36415; 83690; 83735; 84100; 85025; G0378; J1171; J2405; J2470

== ENCOUNTER 2025-02-10 20:57 | Inpatient (IN) | payer MEDICAID ==
[~2025-02-10] VITALS: Ht 175.3 cm; Wt 77.1 kg
[2025-02-10 21:46] LABS: PLATELET COUNT (AUTO) 185 K/uL (152-348); RED BLOOD CELL COUNT(AUTO) 5.29 MIL/uL (4.06-5.63); RED CELL DISTRIBUTION WIDTH 13.9 % (12.1-16.2); WHITE BLOOD COUNT (AUTO) 5.9 K/uL (3.6-10.2)
[2025-02-10] MEDS: HYDROMORPHONE 1 MG/1 ML DISP.SYRIN IV ONE (21:58)
[2025-02-10] MEDS: ONDANSETRON 4 MG/2 ML VIAL IV ONE (21:58)
[2025-02-10] MEDS: IV NORMAL SALINE 1000 ML BAG IV ONE (21:58)
[2025-02-10 22:04] LABS: CREATININE 1.2 mg/dL (0.6-1.3); SODIUM SERUM 141.0 mmol/L (136-145); UREA NITROGEN, BLOOD 20.0 mg/dL (7-18)
[2025-02-10 22:05] LABS: *BILIRUBIN,URIN NEGATIVE (NEGATIVE); *BLOOD, URINE 2+ (NEGATIVE); *COLOR,URINE YELLOW (YELLOW); *KETONES,URINE NEGATIVE (NEGATIVE); *PROTEIN,URINE NEGATIVE (NEGATIVE); *UROBILINOGEN,URINE 0.2 E.U./dl (NORMAL); LEUKOCYTE ESTERASE ,URINE 1+ (NEGATIVE); NITRITE, URINE NEGATIVE (NEGATIVE); UGLUCOSE NEGATIVE (NEGATIVE)
[2025-02-10 22:07] LABS: *CLARITY,URINE SLIGHTLY CLOUDY (CLEAR)
[2025-02-10 22:08] LABS: ASPARTATE AMINOTRANSFERASE 8.0 U/L (15-37); TOTAL PROTEIN, SERUM 7.7 g/dL (6.4-8.2)
[2025-02-10 22:15] LABS: SQUAMOUS EPITHELIAL CELL,UR FEW /HPF (NONE SEEN)
[2025-02-10] MEDS ORDERED: PIPERACILLIN/TAZOBACTAM/D5W 50 ML IV ONE (22:15)
[2025-02-10] MEDS: PIPERACILLIN SODIUM/TAZOBACTAM 3.375 G in IV DEXTROSE 5% 50 ML IV ONE (22:24)
[2025-02-11] MEDS ORDERED: REMEDY ESSENTIAL ZINC PASTE 113 GM TP PRN (00:15)
[2025-02-11] MEDS ORDERED: FLEET ENEMA 133 ML BOTTLE RC PRN (00:15)
[2025-02-11] MEDS ORDERED: HYDROMORPHONE 1 MG/1 ML DISP.SYRIN IV PRN ×2 (00:15→18:00)
[2025-02-11 01:15] VITALS: BP 131/85; TEMP 97.9; O2SAT 100
[2025-02-11] MEDS: IV D5/ 0.9% NACL 1,000 ML IV SCH (01:24)
[2025-02-11] MEDS ORDERED: PIPERACILLIN/TAZOBACTAM/D5W 50 ML IV ONE (02:22)
[2025-02-11] MEDS: PIPERACILLIN SODIUM/TAZOBACTAM 3.375 G in IV DEXTROSE 5% 50 ML IV SCH (04:11)
[2025-02-11 06:00] VITALS: BP 119/83; TEMP 98.4; O2SAT 96
[2025-02-11] MEDS: PANTOPRAZOLE SODIUM 40 MG VIAL IV SCH (10:30)
[2025-02-11] MEDS ORDERED: PROPOFOL 200 MG/20 ML BOTTLE ONE (12:00)
[2025-02-11] MEDS: PIPERACILLIN SODIUM/TAZOBACTAM 3.375 G in IV DEXTROSE 5% 100 ML IV SCH (12:00)
[2025-02-11 12:08] VITALS: BP 125/85; TEMP 98.4; O2SAT 96
[2025-02-11] MEDS ORDERED: ROPIVACAINE HCL/PF 0.5% ( 5 MG/ML ) , 20 ML VIAL ONE (12:13)
[2025-02-11] MEDS ORDERED: LIDOCAINE 2% (GLYDO= UROJET) 10 ML JELLY MM ONE (12:13)
[2025-02-11] MEDS ORDERED: ALBUMIN HUMAN 5% 500 ML ONE (12:14)
[2025-02-11] MEDS ORDERED: FENTANYL CITRATE 100 MCG/2 ML AMPUL ONE (12:14)
[2025-02-11] MEDS ORDERED: ROCURONIUM BROMIDE 50 MG/5 ML VIAL ONE (12:14)
[2025-02-11] MEDS ORDERED: MIDAZOLAM HCL 2 MG/2 ML VIAL ONE (12:14)
[2025-02-11] MEDS ORDERED: FAMOTIDINE. 20 MG/2 ML VIAL IV ONE (12:14)
[2025-02-11] MEDS ORDERED: KETAMINE HCL 500 MG/5 ML VIAL ONE (12:14)
[2025-02-11] MEDS ORDERED: HYDROMORPHONE 2 MG/1 ML DISP.SYRIN ONE (12:14)
[2025-02-11] MEDS ORDERED: SUGAMMADEX SODIUM 200 MG/2 ML VIAL IV ONE (12:15)
[2025-02-11] MEDS ORDERED: MINERAL OIL/PETROLAT OPHT OINT 3.5 GM TUBE ONE (12:44)
[2025-02-11] MEDS ORDERED: BUPIVACAINE PF 0.5% 30 ML VIAL ONE (13:05)
[2025-02-11] MEDS ORDERED: MEPERIDINE 25 MG/1 ML DISP.SYRIN IV PRN (14:15)
[2025-02-11] MEDS ORDERED: ONDANSETRON 4 MG/2 ML VIAL IV PRN (14:15)
[2025-02-11] MEDS: HYDROMORPHONE 1 MG/1 ML DISP.SYRIN IV PRN (15:42)
[2025-02-11] MEDS ORDERED: NALOXONE HCL 0.4 MG/ML AMPUL IV PRN (18:15)
[2025-02-11] MEDS: DOCUSATE SODIUM 100 MG CAPSULE PO SCH (20:55)
[2025-02-11 23:29] VITALS: BP 128/79; TEMP 97.5; O2SAT 94
[2025-02-12] MEDS: HYDROCODONE/APAP 10-325 MG TABLET PO PRN (02:47)
[2025-02-12] MEDS: ONDANSETRON 4 MG/2 ML VIAL IV PRN (03:09)
[2025-02-12 06:16] VITALS: BP 120/61; TEMP 99.1; O2SAT 94
[2025-02-12 08:37] LABS: PLATELET COUNT (AUTO) 166 K/uL (152-348); RED BLOOD CELL COUNT(AUTO) 4.85 MIL/uL (4.06-5.63); RED CELL DISTRIBUTION WIDTH 13.5 % (12.1-16.2); WHITE BLOOD COUNT (AUTO) 10.0 K/uL (3.6-10.2)
[2025-02-12 08:58] LABS: ASPARTATE AMINOTRANSFERASE 15.0 U/L (15-37); CREATININE 1.3 mg/dL (0.6-1.3); SODIUM SERUM 139.0 mmol/L (136-145); TOTAL PROTEIN, SERUM 7.0 g/dL (6.4-8.2); UREA NITROGEN, BLOOD 12.0 mg/dL (7-18)
[2025-02-12] MEDS: MAGNESIUM HYDROXIDE 30 ML LIQUID UDC PO PRN (11:10)
[2025-02-12 11:48] VITALS: BP 119/74; TEMP 99.5; O2SAT 96
[2025-02-12] MEDS ORDERED: SWABABLE VALVE TRANSFER SET EA MC ONE (13:45)
[2025-02-12] MEDS ORDERED: IOHEXOL 300MG/ML 100 ML INFUS..BTL ONE (13:45)
[2025-02-12] MEDS ORDERED: IV NORMAL SALINE 250 ML IV ONE (13:45)
[2025-02-12 16:17] VITALS: BP 133/74; TEMP 98.6; O2SAT 98
[2025-02-12 19:37] VITALS: BP 133/79; TEMP 98; O2SAT 94
[2025-02-12] MEDS ORDERED: VANCOMYCIN IV 200 ML ONE (20:53)
[2025-02-12] MEDS: VANCOMYCIN IV 1,000 MG in IV NORMAL SALINE 250 ML IV ONE (21:04)
[2025-02-13 04:30] VITALS: BP 131/74; TEMP 98.5; O2SAT 94
[2025-02-13] MEDS ORDERED: MORPHINE SULFATE 4 MG/1 ML DISP.SYRIN IV PRN (04:45)
[2025-02-13] MEDS ORDERED: BUPIVACAINE 0.25% 30 ML VIAL ONE (05:13)
[2025-02-13] MEDS ORDERED: LIDOCAINE 2% (GLYDO= UROJET) 10 ML JELLY MM ONE (05:58)
[2025-02-13] MEDS ORDERED: ROCURONIUM BROMIDE 50 MG/5 ML VIAL ONE (05:58)
[2025-02-13] MEDS ORDERED: HYDROMORPHONE 2 MG/1 ML DISP.SYRIN ONE (05:58)
[2025-02-13] MEDS ORDERED: MIDAZOLAM HCL 2 MG/2 ML VIAL ONE ×2 (05:58→07:58)
[2025-02-13] MEDS ORDERED: FAMOTIDINE. 20 MG/2 ML VIAL IV ONE (05:58)
[2025-02-13] MEDS ORDERED: PROPOFOL 200 MG/20 ML BOTTLE ONE (06:00)
[2025-02-13] MEDS: PANTOPRAZOLE SODIUM 40 MG TABLET.DR PO SCH (06:42)
[2025-02-13] MEDS ORDERED: SUGAMMADEX SODIUM 200 MG/2 ML VIAL IV ONE (06:58)
[2025-02-13] MEDS ORDERED: FLUMAZENIL 0.5 MG/5 ML VIAL ONE (07:18)
[2025-02-13 08:40] VITALS: BP 149/99; TEMP 97.6; O2SAT 98
[2025-02-13] MEDS: ENSURE ENLIVE (VAN) 240 ML LIQUID PO SCH (09:00)
[2025-02-13] MEDS: ACETAMINOPHEN 325 MG TABLET PO PRN (11:05)
[2025-02-13] MEDS: VANCOMYCIN IV 1,000 MG in IV DEXTROSE 5% 250 ML IV SCH (15:40)
[2025-02-13] MEDS ORDERED: BISACODYL 10 MG SUPP.RECT RC PRN (20:45)
[2025-02-13] MEDS: MUPIROCIN 2% OINT 22 GM TUBE NS SCH (20:51)
[2025-02-13] MEDS: OXYCODONE HCL 5 MG TABLET PO PRN (20:52)
[2025-02-13 21:57] VITALS: BP 145/75; TEMP 98.6; O2SAT 93
[2025-02-14] MEDS: IV D5/ 0.9% NACL 1,000 ML IV PRN (01:33)
[2025-02-14 06:55] VITALS: BP 144/93; TEMP 97.6; O2SAT 93
[2025-02-14 09:50] LABS: PLATELET COUNT (AUTO) 158 K/uL (152-348); RED BLOOD CELL COUNT(AUTO) 5.00 MIL/uL (4.06-5.63); RED CELL DISTRIBUTION WIDTH 13.6 % (12.1-16.2); WHITE BLOOD COUNT (AUTO) 9.5 K/uL (3.6-10.2)
[2025-02-14 10:01] LABS: ASPARTATE AMINOTRANSFERASE 7.0 U/L (15-37); CREATININE 0.8 mg/dL (0.6-1.3); SODIUM SERUM 135.0 mmol/L (136-145); TOTAL PROTEIN, SERUM 7.0 g/dL (6.4-8.2); UREA NITROGEN, BLOOD 9.0 mg/dL (7-18)
[2025-02-14 11:14] VITALS: BP 135/84; TEMP 99; O2SAT 94
[2025-02-14 15:38] VITALS: BP 128/79; TEMP 98.4; O2SAT 95
[2025-02-14] MEDS: PIPERACILLIN SODIUM/TAZOBACTAM 3.375 G in IV DEXTROSE 5% 100 ML IV SCH (17:17)
[2025-02-14] MEDS: NEUTRA PHOS PACKET PO ONE (17:18)
[2025-02-14 19:30] VITALS: BP 129/69; TEMP 99.2; O2SAT 97
[2025-02-15 04:00] VITALS: BP 119/66; TEMP 99; O2SAT 96
[2025-02-15 12:00] VITALS: BP 135/80; TEMP 98.6; O2SAT 94
[2025-02-15] MEDS: PIPERACILLIN SODIUM/TAZOBACTAM 3.375 G in IV DEXTROSE 5% 100 ML IV SCH (13:29)
[2025-02-15] MEDS: SENNOSIDES/DOCUSATE SODIUM TABLET PO SCH (15:11)
[2025-02-15 15:23] VITALS: BP 130/77; TEMP 98.2; O2SAT 96
[2025-02-15] MEDS ORDERED: SENNOSIDES/DOCUSATE SODIUM TABLET PO SCH (17:00)
[2025-02-15 19:35] VITALS: BP 108/72; TEMP 98.2; O2SAT 95
[2025-02-15] MEDS: OXYCODONE HCL 5 MG TABLET PO PRN (20:29)
[2025-02-15] MEDS: BISACODYL 10 MG SUPP.RECT RC SCH (23:11)
[2025-02-16 04:20] VITALS: BP 115/72; TEMP 98; O2SAT 96
[2025-02-16 06:43] LABS: PLATELET COUNT (AUTO) 198 K/uL (152-348); RED BLOOD CELL COUNT(AUTO) 4.98 MIL/uL (4.06-5.63); RED CELL DISTRIBUTION WIDTH 13.5 % (12.1-16.2); WHITE BLOOD COUNT (AUTO) 7.4 K/uL (3.6-10.2)
[2025-02-16 06:56] LABS: ASPARTATE AMINOTRANSFERASE < 5 U/L (15-37); CREATININE 0.9 mg/dL (0.6-1.3); SODIUM SERUM 137 mmol/L (136-145); TOTAL PROTEIN, SERUM 7.1 g/dL (6.4-8.2); UREA NITROGEN, BLOOD 17 mg/dL (7-18)
[2025-02-16 11:06] VITALS: BP 126/76; TEMP 98.1; O2SAT 100
[2025-02-16 11:11] VITALS: BP 113/64; TEMP 98.7; O2SAT 94
[2025-02-16] MEDS: GOLYTELY 4000 ML BOTTLE PO ONE (13:22)
[2025-02-16 15:09] VITALS: BP 109/60; TEMP 98; O2SAT 96
[2025-02-16 19:25] VITALS: BP 119/85; TEMP 98.1; O2SAT 99
[2025-02-17 05:00] VITALS: BP 116/75; TEMP 98; O2SAT 96
[2025-02-17 11:19] VITALS: BP 103/62; TEMP 98.2; O2SAT 94
[2025-02-17] MEDS: NITROFURANTOIN/NITROFURAN MAC 100 MG CAPSULE PO SCH (13:16)
[2025-02-17] MEDS ORDERED: SWABABLE VALVE TRANSFER SET EA MC ONE (13:21)
[2025-02-17] MEDS ORDERED: IOHEXOL 300MG/ML 100 ML INFUS..BTL ONE (13:21)
[2025-02-17] MEDS ORDERED: IV NORMAL SALINE 250 ML IV ONE (13:22)
[2025-02-17 16:00] VITALS: BP 110/72; TEMP 98; O2SAT 96
[2025-02-17] MEDS ORDERED: BISA10SU12 RC (18:06)
[2025-02-17] MEDS ORDERED: POLY17PO4 PO (18:06)
[2025-02-17] MEDS ORDERED: DOCU250C14 PO (18:06)
[2025-02-17] MEDS ORDERED: ACET325T53 PO (18:06)
[2025-02-17] MEDS ORDERED: AMOX-430 PO ×2 (18:06→18:10)
[2025-02-17] MEDS ORDERED: PANT40TA49 PO (18:06)
[2025-02-17] MEDS ORDERED: IBUP-1953 PO (18:10)
== END 2025-02-17 18:54 | disposition home or self-care (01) | DRG 228 ==
LOC: ER 21:19 → MEDSURG3 02-11 00:24
PROVIDERS: ADMIT Registered Nurse Psychiatric/Mental Health; ATTEND Internal Medicine
PROC: 0YU50JZ Supplement Right Inguinal Region with Synthetic Substitute, Open Approach (ICD-10-PCS; principal; 2025-02-11 12:30)
PROC: 0YU50JZ Supplement Right Inguinal Region with Synthetic Substitute, Open Approach (ICD-10-PCS; 2025-02-13)
DX: K40.30 Unilateral inguinal hernia, with obstruction, without gangrene, not specified as recurrent (principal); E44.1 Mild protein-calorie malnutrition; K35.80 Unspecified acute appendicitis; Q85.01 Neurofibromatosis, type 1; N39.0 Urinary tract infection, site not specified; K40.91 Unilateral inguinal hernia, without obstruction or gangrene, recurrent; N43.3 Hydrocele, unspecified; N32.3 Diverticulum of bladder; B95.62 Methicillin resistant Staphylococcus aureus infection as the cause of diseases classified elsewhere; F17.210 Nicotine dependence, cigarettes, uncomplicated; N48.89 Other specified disorders of penis; K59.00 Constipation, unspecified; R17 Unspecified jaundice; Z91.81 History of falling
CPT/HCPCS: 36415; 71045; 74018; 83605; 83690; 83735; 84100; 85025; 87077; 87086; A4606; A4649; A4663; C1781; G0378; J0690; J1100; J1171; J1308; J2250; J2270; J2405; J2470; J2543; J2795; J3010; J3373; J3490; J7040; J7042; J7050; P9045; Q0162; Q9967

== ENCOUNTER 2025-02-26 19:16 | Emergency (ER) | payer MEDICAID, OTHER ==
[~2025-02-26] VITALS: Ht 175.3 cm; Wt 78.5 kg
[~2025-02-26 19:16] MED LIST changes: +ACET325T53 PO; +AMOX-430 PO; +BISA10SU12 RC; -CEPH500C2 PO; -CEPH500T PO; +DOCU250C14 PO; -FURO-152 PO; -HYDR-3972 PO; -HYDR-3980 PO; +IBUP-1953 PO; -NITR-84 PO; -ONDA4TAB5 PO; -OXYC-128 PO; +PANT40TA49 PO; +POLY17PO4 PO; -SULF1TAB48 PO
[2025-02-26 19:21] VITALS: BP 140/83
[2025-02-26 20:34] LABS: PLATELET COUNT (AUTO) 302 K/uL (152-348); RED BLOOD CELL COUNT(AUTO) 4.86 MIL/uL (4.06-5.63); RED CELL DISTRIBUTION WIDTH 13.8 % (12.1-16.2); WHITE BLOOD COUNT (AUTO) 6.1 K/uL (3.6-10.2)
[2025-02-26] MEDS ORDERED: ONDANSETRON 4 MG/2 ML VIAL ONE (20:41)
[2025-02-26] MEDS ORDERED: HYDROMORPHONE 1 MG/1 ML DISP.SYRIN ONE (20:41)
[2025-02-26 20:44] LABS: CREATININE 1.1 mg/dL (0.6-1.3); SODIUM SERUM 141 mmol/L (136-145); UREA NITROGEN, BLOOD 17 mg/dL (7-18)
[2025-02-26] MEDS: ONDANSETRON 4 MG/2 ML VIAL IV ONE (20:46)
[2025-02-26] MEDS: IV NORMAL SALINE 1000 ML BAG IV ONE (20:46)
[2025-02-26] MEDS: HYDROMORPHONE 1 MG/1 ML DISP.SYRIN IV ONE (20:46)
[2025-02-26 20:49] LABS: ASPARTATE AMINOTRANSFERASE 5 U/L (15-37); TOTAL PROTEIN, SERUM 7.7 g/dL (6.4-8.2)
[2025-02-26] MEDS ORDERED: IOHEXOL 300MG/ML 100 ML INFUS..BTL ONE (20:51)
[2025-02-26] MEDS ORDERED: IV NORMAL SALINE 250 ML IV ONE (20:51)
[2025-02-26] MEDS ORDERED: SWABABLE VALVE TRANSFER SET EA MC ONE (20:52)
[2025-02-26 23:09] LABS: *BILIRUBIN,URIN NEGATIVE (NEGATIVE); *BLOOD, URINE TRACE (NEGATIVE); *CLARITY,URINE CLEAR (CLEAR); *COLOR,URINE YELLOW (YELLOW); *KETONES,URINE NEGATIVE (NEGATIVE); *PROTEIN,URINE NEGATIVE (NEGATIVE); *UROBILINOGEN,URINE 0.2 E.U./dl (NORMAL); LEUKOCYTE ESTERASE ,URINE NEGATIVE (NEGATIVE); NITRITE, URINE NEGATIVE (NEGATIVE); UGLUCOSE NEGATIVE (NEGATIVE)
[2025-02-26 23:10] LABS: SQUAMOUS EPITHELIAL CELL,UR NONE SEEN /HPF (NONE SEEN)
[2025-02-26] MEDS ORDERED: HYDR-3980 PO (23:44)
[2025-02-27 01:19] VITALS: BP 131/79; O2SAT 98
== END 2025-02-27 00:40 | disposition home or self-care (01) ==
LOC: ER 19:16
DX: R10.9 Unspecified abdominal pain (principal); F17.200 Nicotine dependence, unspecified, uncomplicated; Z88.7 Allergy status to serum and vaccine; Z98.890 Other specified postprocedural states
CPT/HCPCS: 99285; 74177; 96374; 96361; 96375; 80076; 80048; 81001; 83690; 85025; 36415; J2405; Q9967; J1171; J7040; A4606; A4663